=== PATIENT | female | born 1980 | race Caucasian/White ===

== ENCOUNTER 2021-11-12 20:18 | Emergency (ER) | payer BC ==
[2021-11-12 21:00] LABS: #Eosinphils 0.4 10x3/uL (0.0-0.5); #Monocytes 0.5 10x3/uL (0.0-1.1); #Neutrophils 3.7 10x3/uL (1.5-8.4); %Basophils 0.6 % (0.0-2.0); %Eosinophils 5.5 % (0.0-6.0); %Lymphocytes 30.7 % (18.0-47.0); %Monocytes 6.9 % (0.0-10.0); Hemoglobin 13.6 g/dL (12.0-15.5); Mean Corpuscular HGB CONC 34.3 g/dL (32.0-36.0); Mean Corpuscular Hemoglobin 32.2 pg (27.0-33.0); Mean Corpuscular Volume 93.8 fl (81.6-98.3); Mean Platelet Volume 10.4 fl (7.4-10.4); Platelet Count 302 10x3/uL (150-450); RBC Distribution Width 11.2 % (11.5-14.5); Red Blood Cell (RBC) Count 4.22 10x6/uL (3.90-5.03); White Blood Cell (WBC) Count 6.5 10x3/uL (3.5-10.5)
[2021-11-12 21:14] LABS: ALT (SGPT) 26 U/L (8-55); AST (SGOT) 22 U/L (5-34); Albumin 4.8 g/dL (3.5-5.0); Alkaline Phosphatase 63 U/L (40-110); Anion Gap 14 mmol/L (10-20); BUN (Urea Nitrogen) 10 mg/dL (7.0-18.7); Bilirubin, Total 0.3 mg/dL (0.2-1.2); Calc. Creatinine Clearance 0 mL/min (70-130); Calcium 9.3 mg/dL (7.8-10.44); Carbon Dioxide 27 mmol/L (22-29); Chloride 103 mmol/L (98-107); Estimated GFR 108; Globulin 2.9 g/dL (2.4-3.5); Glucose 104 mg/dL (70-105); Potassium 3.9 mmol/L (3.5-5.1); Protein, Total 7.7 g/dL (6.0-8.3); Sodium 140 mmol/L (136-145)
== END 2021-11-12 21:40 | disposition home or self-care (01) ==
LOC: CSHERS 20:18
DX: R20.0 Anesthesia of skin (principal); M54.6 Pain in thoracic spine
CPT/HCPCS: 70450; 80053; 84484; 85025